=== PATIENT | female | born 1990 | race Caucasian/White ===

== ENCOUNTER 2024-08-08 09:05 | Outpatient (AMB) | payer BC, SELFPAY ==
--- NOTE | 2024-08-08 09:22 | A.OFFPC_ITS ---
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 News Internship Required: No Is last menstrual period known: Yes Last menstrual period: 08/01/24 Post menopausal: No Patient : No Allergies No Known Allergies Allergy (Verified 08/08/24 09:41) Medication List - Last Reconciled 08/08/24 by Gage Nation CNP desog-e.estradiol/e.estradiol 0.15-0.02 mgx21 /0.01 mg x 5 (Cat (28)) 1 tab PO DAILY levothyroxine 75 mcg PO DAILY Tobacco use date assessed: 08/08/24 Dental Screening Dental Screen Date: 08/08/24 Did you have a dental visit in the last 12 months?: Yes Did you have a dental problem in the last 6 months where you did not have access to dental care?: No Was dental information given to patient?: Patient has dentist HPI HPI Comments History of Present Illness Details New patient Prior PCP:?[facility], Dr. Miller Last office visit/CPE: Over 6 months Acute issue(s): Hypothyroidism -She is on levothyroxine 75 mcg daily She is on daily OCP She notes that she generally eats healthy and sleeps well. She exercises rout inely. She is interested in seeing a telehealth coordinator PMHx: Hypothyroidism, microscopic hematuria SurgHx: Ear tubes placement FHx: Mom: HTN, HLD, thyroid disease. Dad: Alcohol abuse, DM SocHx: Nonsmoker. Does not drink alcohol. No recreational drugs She has not had an eye exam in a long time Last tetanus vaccine is unknown Last pap smear test was with [facility]: normal She reports blood in her urine whenever she get urine test at her [employer], ongoing past 5-6 years. No history of burning, pain, discharge with urination, or urinary frequency. 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 Surgical History (Updated 08/08/24 @ 09:38 by Treva Lobato) History of placement of ear tubes Family History (Updated 08/08/24 @ 09:40 by Treva Lobato) Father Alcohol abuse Diabetes Mother High blood pressure High cholesterol Thyroid disorder Social History Housing: [facility] Patient Tobacco Use Status: Never used Tobacco e-Cigarette/Vaping Use: Never Used Second Hand Smoke Exposure: No service: No Current occupational status: employed Current occupation: [employer] Current occupational exposures/hazards: No Cognitive needs: No Hearing needs: No Vision needs: No Female Reproductive History Menstrual Date of last menstrual period: 08/01/24 Questionnaire PHQ-9 Over the last 2 weeks, how often have you been bothered by any of the following problems? 1. Little interest or pleasure in doing things: not at all 2. Feeling down, depressed, or hopeless: not at all 3. Trouble falling or staying asleep, or sleeping too much: not at all 4. Feeling tired or having little energy: not at all 5. Poor appetite or overeating: not at all 6. Feeling bad about yourself - or that you are a failure or have let yourself or your family down: not at all 7. Trouble concentrating on things, such as reading the newspaper or watching television: not at all 8. Moving or speaking so slowly that other people could have noticed. Or the opposite - being so fidgety or restless that you have been moving around a lot more than usual: not at all 9. Thoughts that you would be better off or of hurting yourself in some way: not at all Total score: 0 Depression Screening Interpretation: Negative Depression Screening Done: Yes 78039 - PHQ-9 Billing: Yes Source: Developed by Drs. Jose R Arzate, Tabitha Holder, Bryson Knox and colleagues, with an educational robert from [employer]. Thrive Questionnaire Date Thrive assessed: 08/08/24 I am a: Patient What is your living situation today?: I have a steady place to live Within the past 12 months, did the food you bought not last and you didn't have the money to get more?: Never true Within the past 12 months, did you worry whether your food would run out before you got money to buy more?: Never true Do you have trouble paying for medicines?: No Do you have trouble getting transportation to medical appointments?: No Do you have trouble paying your heating and electricity bill?: No Do you have trouble taking care of your child, family member or friend?: No Do you have trouble with day-to-day activities such as bathing, preparing meals, shopping, managing finances, etc.?: No Are you currently unemployed and looking for a job?: No Are you interested in more education?: No Please select the resources that you would like help with: None Currently or been in a relationship where the following occur: No concerns reported THRIVE Score: 0 AUDIT C Alcohol Use Questionnaire (AUDIT-C) 1. How often do you have a drink containing alcohol?: Never 3. How often do you have six or more drinks on one occasion?: Never Total Score: 0 CAROLYN-7 AMB Questionnaire CAROLYN-7 Date CAROLYN - 7 assessed: 08/08/24 Feeling nervous, anxious, or on edge: 0 = Not at all Not being able to stop or control worryin = Not at all Worrying too much about different things: 0 = Not at all Trouble relaxin = Not at all Being so restless that it is hard to sit still: 0 = Not at all Becoming easily annoyed or irritable: 0 = Not at all Feeling afraid as if something awful might happen: 0 = Not at all Total CAROLYN-7 score (0-4 normal; 5-9 mild; 10-14 moderate; 15-21 severe): 0 Source: Developed by Drs. Jose R Arzate, Tabitha Holder, Bryson Knox and colleagues, with an educational robert from [employer]. CAROLYN-7 Assessment Billing CAROLYN-7 Assessment Tool: CAROLYN-7 Assessment 38844 Review of Systems Const Details: Denies chills, Denies fatigue, Denies fever(s), Denies headache(s) and Denies weakness HEENT Denies change in vision, Denies dizziness, Denies headache(s), Denies hearing loss, Denies nasal congestion, Denies sinus pain, Denies sinus pressure and Denies sore throat Card Denies chest pain, Denies lightheadedness, Denies dyspnea and Denies other (palpitations) Resp Denies cough, Denies dyspnea and Denies wheezing GI Denies abdominal pain, Denies melena, Denies hematochezia, Denies change in bowel habits, Denies dyspepsia and Denies nausea Denies hematuria and Denies dysuria Musc Denies abnormal gait, Denies myalgias, Denies arthralgias, Denies numbness and Denies tingling Skin/Breast Denies rash, Denies unusual bruising and Denies wounds Neuro Denies abnormal gait, Denies dizziness, Denies headache(s), Denies memory loss, Denies numbness, Denies Sensory deficit (Neuro), Denies tingling and Denies weakness Psych Denies anxiety, Denies depression and Denies memory loss Endo Denies cold intolerance, Denies fatigue, Denies heat intolerance, Denies polydipsia and Denies polyuria Walter/Lymph Denies easy bleeding and Denies easy bruising Aller/Immun Denies wheezing Physical exam (Primary Care) Vital Signs: Last Vital Signs Temp 97.6 F 08/08/24 09:31 Pulse 91 08/08/24 09:31 Resp 16 08/08/24 09:31 BP 122/70 08/08/24 09:31 Pulse Ox 96 08/08/24 09:31 Oxygen Delivery Method Room Air 08/08/24 09:31 BMI result Body Mass Index 39.8 Tobacco/Smoking Status: Tobacco use Status Tobacco use date assessed 08/08/24 08/08/24 09:30 Patient Tobacco Use Status Never used Tobacco 08/08/24 09:30 e-Cigarette/Vaping Use Never Used 08/08/24 09:30 PHQ-9: PHQ-9 Score PHQ-9: Total score 0 08/08/24 10:19 Depression Screening Interpretation: Negative Thrive Assessment: Date of Thrive Assessment Date Thrive assessed 08/08/24 08/08/24 09:41 Currently or been in a relationship where the following occur: No concerns reported Const Other: General: no acute distress, well developed, alert and awake Nutritional Appearance: well nourished Orientation/consciousness: patient oriented x3 HENMT Head: Yes normocephalic and Yes atraumatic Ears: hearing grossly normal bilaterally and TM's normal bilaterally General nose exam: Normal external nose present and Normal nares present Mouth: Normal oral and palatal mucosa present and moist mucous membranes Teeth and gingiva: dentition normal Throat: Yes oropharynx normal Eyes Pupils: Equal, round and reactive pupils present and Pupil accommodation reflex normal EOM: EOMs intact bilaterally Neck Neck: Yes normal visual inspection, Yes no lymphadenopathy and Yes trachea midline Thyroid: Thyroid normal Carotids: no bruits Lymphatic: no lymphadenopathy noted Chest Chest palpation & inspection: normal inspection of the chest Resp Effort & Inspection: normal respiratory effort Auscultation: clear to auscultation bilaterally Cardio Rate: regular rate Rhythm: regular rhythm Heart sounds: S1 normal heart sound present, S2 normal heart sound present, no gallops, no murmurs and no rubs Bruits: no abdominal aortic bruits and no carotid bruits GI Palpation (GI): No Abdominal aortic bruit present, Soft to palpation, nontender, No hepatosplenomegaly present and No Rebound tenderness present Auscultation: normal bowel sounds General: Yes no CVA tenderness Back/Spine/Pelvis Back: no CVA tenderness Cervical Spine: cervical ROM normal and No Cervical spine tenderness Thoracic/Lumbar Spine: thoraco-lumbar ROM normal, No pain with thoraco-lumbar ROM, No thoracic spinal tenderness and No lumbar spinal tenderness Skin General: warm and dry. Normal skin color. Normal skin turgor Lesions: no lesions Rashes: no rashes Trauma: no lacerations or abrasions Wounds: no wounds Nails: normal Neuro General: patient oriented x3, gait normal and CN's II-XI intact bilaterally Cranial nerves: Yes Equal, round and reactive pupils present Cognition (Neuro): normal cognition Gait exam (Neuro): Normal gait present Motor exam (neuro): 5/5 motor strength present throughout Sensory Exam: No Sensory deficit (Neuro) Deep tendon reflexes (DTR's): Right patellar reflex intensity grade: 2+ and Left patellar reflex intensity grade: 2+ Extrem General: Yes normal to inspection, No edema and No calf tenderness Psych Appearance: grossly normal Affect: normal affect Attitude: cooperative Thought process: Normal thought process present Immunizations Boostrix Tdap 2.5 Lf unit-8 mcg-5 Lf/0.5 mL intramuscular syringe Performing Provider: Gage Nation CNP [place] [facility] Administered by: Elyse Marcial RN on 08/08/24 10:18 Dose Route Admin Location Dispensed Lot Number Expiration Date [facility] [place]NOTE 2] 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 mL IM Left Deltoid 0.5 mL [id number] 08/08/24 18017-251-42 [employer] VIS Given Date VIS Provided VIS Publication Date 08/08/24 Single Vaccine 21 Eligibility Eligibility Date Funding Source Not [facility] Eligible 08/08/24 Private Assessment and Plan Assessment & Plan (1) Normal physical examination, routine: Code(s): Z00.00 - Encounter for general adult medical examination without abnormal findings Plan: No significant physical restrictions or limitations noted Continue current treatment regimen Healthy diet and routine exercise encouraged Advised to get lab work done and follow-up in 2-3 weeks for labs review Return sooner with symptoms or concerns Verbalized understanding and agreed with the treatment plan (2) Hypothyroidism: Code(s): E03.9 - Hypothyroidism, unspecified Plan: She is on levothyroxine 75 mcg daily. 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 No symptoms. She requests a referral to [facility] Will check urinalysis and make changes as needed Verbalized understanding and agreed with the plan (4) Eye exam, routine: Code(s): Z01.00 - Encounter for examination of eyes and vision without abnormal findings Plan: She has not had an eye exam in a long time Referred to Ophthalmology for routine eye exam (5) Vaccine for tetanus toxoid: Code(s): Z23 - Encounter for immunization Plan: Last tetanus vaccine is unknown Tdap vaccine was administered by our nurse today (6) Obesity (BMI 30-39.9): Code(s): E66.9 - Obesity, unspecified Plan: She currently weighs 197 lb, BMI is 39.8 Healthy diet and routine exercise encouraged [place] [facility] (7) Laboratory tests ordered as part of a complete physical exam (CPE): Code(s): Z00.00 - Encounter for general adult medical examination without abnormal findings Plan: Fasting labs ordered as part of a complete physical exam. Advised to fast for at least 10 hours before getting labs drawn. May drink water Verbalized understanding and agreed with treatment plan. Orders: Orders Complete Blood Count Auto Diff Today Z00.00 - Encounter for general adult medical examination without abnormal findings Comprehensive Sachse. Panel Fast Today Z00.00 - Encounter for general adult medical examination without abnormal findings Lipid Panel Today Z00.00 - Encounter for general adult medical examination without abnormal findings TSH reflex Free T4 Today Z00.00 - Encounter for general adult medical examination without abnormal findings UA CC w/rflx Micro + Cult Today Z00.00 - Encounter for general adult medical examination without abnormal findings TDaP Immunization Today Z23 - Encounter for immunization Referrals Ophthalmology Referral Z01.00 - Encounter for examination of eyes and vision without abnormal findings Nutrition/Dietitian Referral E66.9 - Obesity, unspecified Coding Level of Care Code New Pt Level 3 (01540) New Pt Prev Care 18-39yr([id number] Diagnoses Normal physical examination, routine Z00.00 Hypothyroidism E03.9 Microscopic hematuria R31.29 Eye exam, routine Z01.00 Vaccine for tetanus toxoid Z23 Obesity (BMI 30-39.9) E66.9 Laboratory tests ordered as part of a complete physical exam (CPE) Z00.00 Additional Codes CAROLYN-7 Assessment Billing - CAROLYN-7 Assessment Tool: CAROLYN-7 Assessment 05005 ([id number])
[2024-08-08 09:31] VITALS: BP 122/70; PULSE 91; RESP 16; TEMP 36.4; O2SAT 96; BMI 39.8
== END 2024-08-08 10:08 | disposition home or self-care (01) ==
PROVIDERS: Visit Provider Nurse Practitioner Family
DX: Z00.00 Encounter for general adult medical examination without abnormal findings (principal); Z68.39 Body mass index [BMI] 39.0-39.9, adult; E66.9 Obesity, unspecified; E03.9 Hypothyroidism, unspecified; R31.29 Other microscopic hematuria; Z23 Encounter for immunization

== ENCOUNTER → 2024-08-08 09:05 | Outpatient (BNVA) | payer BC, SELFPAY | PROVIDERS: Visit Provider Nurse Practitioner Family | DX: Z00.00 Encounter for general adult medical examination without abnormal findings (principal); E03.9 Hypothyroidism, unspecified; R31.9 Hematuria, unspecified; E66.9 Obesity, unspecified; Z68.39 Body mass index [BMI] 39.0-39.9, adult; Z79.899 Other long term (current) drug therapy | CPT/HCPCS: 90471; 90715; 96127 ==

== ENCOUNTER 2024-08-09 08:20 | Outpatient (REF) | payer BC, SELFPAY ==
[2024-08-09 10:15] LABS: MANUAL DIFF FLAG NO
[2024-08-09 10:25] LABS: Basophils Percent Auto 0.3 % (0-2); Eosinophils Percent Auto 0.5 % (0-4); Hematocrit 40.7 % (37.0-47.0); Hemoglobin 13.6 g/dl (12.0-16.0); Imm Gran Abs Auto 0.03 X10*3/uL (0.00-0.03); Imm Gran Pct Auto 0.3 % (0.0-0.4); Lymphocytes Absolute Auto 1.8 X10*3/uL (1.2-4.9); Lymphocytes Percent Auto 20.1 % (20-40); Mean Corpuscular HGB Conc 33.4 g/dl (31.0-35.0); Mean Corpuscular Hemoglobin 29.2 pg (27.0-33.0); Mean Corpuscular Volume 87.3 fL (80.0-98.0); Mean Platelet Volume 10.3 fL (9.4-12.3); Monocytes Absolute Auto 0.5 X10*3/uL (0.1-1.2); Monocytes Percent Auto 5.7 % (2-11); Neutrophils Absolute Auto 6.4 x10*3/uL (2.0-8.3); Neutrophils Percent Auto 73.1 % (45-73); Platelet Count 388 X10*3/uL (160-400); Red Blood Count 4.66 X10*6/uL (4.20-5.50); Red Cell Distribution Width 13.4 % (11.0-16.0); White Blood Count 8.8 X10*3/uL (4.8-10.8)
[2024-08-09 10:27] LABS: Appearance Urine Cloudy; Color Urine Yellow; Glucose Urine UA Negative (Negative); Leukocyte Esterase Urine Moderate (2+) (Negative); Nitrite Urine Negative (Negative); UMIC TRIGGER UACC YES; Urine Blood Moderate (2+) (Negative); Urine Ketones Negative (Negative); Urine Protein Negative (Neg-Trace)
[2024-08-09 10:33] LABS: Bacteria Urine 2+ (None Seen); Hyaline Casts Urine 0-2 /LPF (0-2); RBC Urine >20 /HPF (0-2); UACC Culture Trigger YES; WBC Urine 21-50 /HPF (0-5)
[2024-08-09 11:08] LABS: Alanine Aminotransferase 35 U/L (0-31); Alkaline Phosphatase 64 U/L (39-117); Anion Gap 13 (12-20); Aspartate Amino Transferase 30 U/L (5-31); Bilirubin Total 0.4 mg/dL (0.0-1.0); Blood Urea Nitrogen 12 mg/dL (9-16); Calcium 9.4 mg/dL (8.4-10.2); Carbon Dioxide 21 mmol/L (22-29); Chloride 108 mmol/L (96-108); Cholesterol 240 mg/dL (<200); Estimated Glomerular Filt Rate > 60; Glucose Fasting 82 mg/dL (60-99); HDL Cholesterol 59 mg/dL (>40); LDL Cholesterol Calculated 128 mg/dL (<100); Potassium 3.8 mmol/L (3.3-5.1); Sodium 138 mmol/L (135-145); TSH reflex Free T4 2.25 uIU/mL (0.32-4.0); Total Protein 7.9 g/dL (6.5-8.0); Triglycerides 265 mg/dL (<150)
== END 2024-08-09 08:21 | disposition home or self-care (01) ==
LOC: HO.WFDLDS 08:20
PROVIDERS: Visit Provider Nurse Practitioner Family
DX: Z00.00 Encounter for general adult medical examination without abnormal findings (principal)
CPT/HCPCS: 36415; 80053; 80061; 81001; 84443; 85025; 87086

== ENCOUNTER 2024-08-23 13:34 | Outpatient (AMB) | payer BC, SELFPAY ==
[2024-08-23 14:12] VITALS: BMI 39.4
--- NOTE | 2024-08-23 14:12 | MHC.AMNUTRGE ---
VS Expanded 08/23/24 14:12 08/30/24 11:07 Height 4 ft 11 in 4 ft 11 in Weight 194 lb 14.218 oz 195 lb BMI 39.4 39.4 Intake Visit Reasons: Obesity/CONFIRMED Allergies No Known Allergies Allergy (Verified 08/28/24 14:45) Nutrition Presentation Details: Pt presents for MNT for obesity. Pt was referred by PCP Food frequency fruits: 2-4 twice/day dairy: 2 + cheese mostly fish: 0-3 week vegetables: every meal water : 24 oz/d fried foods 3 x/wk Working on intermittent fasting on and off physical activity : daily life activities etoh/smoking: --- BS Monitoring Most Recent Diabetes Results: Cholesterol 240 mg/dL (<200) H 08/09/24 HDL Cholesterol 59 mg/dL (>40) 08/09/24 Triglycerides 265 mg/dL (<150) H 08/09/24 Creatinine 0.72 mg/dL (0.5-1.4) 08/09/24 Blood Urea Nitrogen 12 mg/dL (9-16) 08/09/24 Sodium 138 mmol/L (135-145) 08/09/24 Potassium 3.8 mmol/L (3.3-5.1) 08/09/24 Chloride 108 mmol/L (96-108) 08/09/24 Carbon Dioxide 21 mmol/L (22-29) L 08/09/24 Calcium 9.4 mg/dL (8.4-10.2) 08/09/24 AST 30 U/L (5-31) 08/09/24 ALT 35 U/L (0-31) H 08/09/24 Total Protein 7.9 g/dL (6.5-8.0) 08/09/24 Albumin 4.0 g/dL (3.5-5.0) 08/09/24 WYP-Twgtqpp-Rr.Jeor Equation Height: 4 ft 11 in Weight: 195 lb Resting Metabolic Rate: 1496.89 Calculated Activity Level: Sedentary Calories Needed to Maintain Weight: 1796.27 Diagnosis Nutrition problem #1: food nutri know defi As related to (etiology) #1: diagnosis As evidenced by (sign/symptom) #1: knowledge deficit of diet [facility] Medical History (Updated 08/30/24 @ 11:[address], LDN) Frankie's disease Surgical History (Updated 08/08/24 @ 09:38 by Treva Lobato MA) History of placement of ear tubes Family History (Updated 08/08/24 @ 09:40 by Treva Lobato MA) Father Alcohol abuse Diabetes Mother High blood pressure High cholesterol Thyroid disorder [facility] History [facility] Patient Tobacco Use Status: Never used Tobacco e-Cigarette/Vaping Use: Never Used Second Hand Smoke Exposure: No service: No Current occupational status: employed Current occupation: [employer] Current occupational exposures/hazards: No Cognitive needs: No Hearing needs: No Vision needs: No Assessment & Plan Assessment & Plan (1) Obesity (BMI 30-39.9): Comment: with dyslipidemia, Code(s): E66.9 - Obesity, unspecified Category: Medical Plan: Wt: 88 Kg ( 09/14 ) Est kcal needs as per MSJ: 1800 (40% carb, 30% protein/fat) Est fluid needs as per 25-30 ml/d: 2600 Est prot per day as per 1 g/kg bw: 88 Recommend fiber intake : 8-10 g per day and gradually increase to 25-28 g per day for women and 35-38 g for men or as tolerated Recommend sodium intake per day : less than 2300 mg Educated patient on: ( R = reviewed V = verbalizes understanding N/R = needs review N/A = not applicable Food sources of carbohydrate, adequate serving sizes and its role in various health conditions: R Differences between complex carbohydrates a simple carbohydrates, role of fiber in diet: R V N/R Lean protein sources of foods: R V NR Differences between types of fats and role in diet (mono on saturated fat fatty acids, saturated fatty acids, trans fats): R V N/R Food sources of sodium in salt and healthy modifications for heart health in kidney health: R V R/V Vitamins and minerals: R V N/R Healthy plate method concept: R V N/R Physical activity: Benefits a precaution: R Patient Instructions: Practice mindful eating have 3 balanced meals per day working on following healthy plate method see meal ideas consisting of lean protein foods and less than 60 g carb per meals /complex carbs Keep hydrated by having no sugar beverages (water, infused water) 8-10 c/d Coding Level of Care Code Nutr Indiv Intake (65664) Diagnoses Obesity (BMI 30-39.9) E66.9 Time Spent (min) 30
[2024-08-30 11:07] VITALS: BMI 39.4
== END 2024-08-23 14:45 | disposition home or self-care (01) ==
PROVIDERS: Visit Provider Dietitian, Registered
DX: E66.9 Obesity, unspecified (principal)

== ENCOUNTER → 2024-08-23 13:34 | Outpatient (BNVA) | payer BC, SELFPAY | PROVIDERS: Visit Provider Dietitian, Registered | DX: E66.9 Obesity, unspecified (principal); Z68.39 Body mass index [BMI] 39.0-39.9, adult; E78.5 Hyperlipidemia, unspecified; Z71.3 Dietary counseling and surveillance | CPT/HCPCS: 97802 ==

== ENCOUNTER 2024-08-28 14:48 | Outpatient (AMB) | payer BC, SELFPAY ==
--- NOTE | 2024-08-28 14:45 | A.OFFPC_ITS ---
Intake Visit Reasons: Lab review Intake Note: patient here for follow up on labs Pre Sales Technical Consultant Required: No Allergies No Known Allergies Allergy (Verified 08/28/24 14:45) Tobacco use date assessed: 08/08/24 Dental Screening Dental Screen Date: 08/08/24 HPI HPI Comments History of Present Illness Details 33-year-old female presents for review o f recent lab results She admits to taking her medications as prescribed without adverse reactions She offers no complaints and denies acute symptoms at this time [facility] Medical History (Updated 08/28/24 @ 15:12 by Gage Nation CNP) Frankie's disease Surgical History (Updated 08/08/24 @ 09:38 by Treva Lobato MA) History of placement of ear tubes Family History (Updated 08/08/24 @ 09:40 by Treva Lobato MA) Father Alcohol abuse Diabetes Mother High blood pressure High cholesterol Thyroid disorder Social History [facility]: [facility] Patient Tobacco Use Status: Never used Tobacco e-Cigarette/Vaping Use: Never Used Second Hand Smoke Exposure: No service: No Current occupational status: employed Current occupation: [employer] Current occupational exposures/hazards: No Cognitive needs: No Hearing needs: No Vision needs: No Questionnaire Thrive Questionnaire Date Thrive assessed: 08/08/24 CAROLYN-7 AMB Questionnaire CAROLYN-7 Date CAROLYN - 7 assessed: 08/08/24 Source: Developed by Drs. Jose R Arzate, Tabitha Holder, Byrson Knox and colleagues, with an educational robert from [employer] Review of Systems Const Details: Const Denies chills, Denies fatigue, Denies fever(s), Denies headache(s) and Denies weakness ENT Denies dizziness and Denies headache(s) Card Denies chest pain, Denies lightheadedness, Denies dyspnea and Denies other (Palpitations) Resp Denies cough, Denies dyspnea, Denies wheezing and Denies other ( shortness of breath) GI Denies abdominal pain, Denies melena, Denies hematochezia, Denies change in bowel habits, Denies dyspepsia and Denies nausea Denies hematuria and Denies dysuria Musc Denies abnormal gait, Denies myalgias, Denies arthralgias, Denies numbness and Denies tingling Skin/Breast Denies rash, Denies unusual bruising and Denies wounds Neuro Denies abnormal gait, Denies dizziness, Denies headache(s), Denies memory loss, Denies numbness, Denies Sensory deficit (Neuro), Denies tingling and Denies weakness Psych Denies anxiety, Denies depression, Denies memory loss Endo Denies cold intolerance, Denies fatigue, Denies heat intolerance, Denies polydipsia and Denies polyuria Aller/Immun Denies wheezing Physical exam (Primary Care) Tobacco/Smoking Status: Tobacco use Status Tobacco use date assessed 08/08/24 08/28/24 14:46 Patient Tobacco Use Status Never used Tobacco 08/28/24 14:46 e-Cigarette/Vaping Use Never Used 08/28/24 14:46 Thrive Assessment: Date of Thrive Assessment Date Thrive assessed 08/08/24 08/28/24 14:46 Const Other: Telehealth visit no physical exam Telehealth Telehealth Telehealth Platform: Telephone Location of provider rendering services: practice address Location of patient: address on file Patient Identification confirmed using: Name, : Yes Telehealth method: voice only Patient verbally consented to treatment: Yes Patient verbally consented to billing insurance company: Yes Patient informed of any privacy concerns related to visit: Yes Coding Level of Care Code Tele Est Pt Level 3 (95197) Diagnoses Dyslipidemia E78.5 Elevated ALT measurement R74.01 Hypothyroidism E03.9 Time Spent (min) 10 Assessment & Plan Assessment & Plan (1) Dyslipidemia: Code(s): E78.5 - Hyperlipidemia, unspecified Category: Medical Plan: Recent triglycerides and total cholesterol levels elevated, 265 and 240 respectively She notes that her mother has history hyperlipidemia She will like to try lifestyle changes before medication management Advised to limit foods high in saturated fat and avoid foods high in trans fat Routine exercise encouraged Advised to fast for 10-12 hours, may drink water only, and get blood work done before her next visit Follow-up in 2 months or sooner with symptoms or concerns Verbalized understanding and agreed with the plan (2) Elevated ALT measurement: Code(s): R74.01 - Elevation of levels of liver transaminase levels Category: Medical Plan: Recent ALT level is slightly elevated, 35 Likely due to hepatic steatosis Healthy diet and routine exercise encouraged Will recheck lipid panel levels in 2 months Verbalized understanding and agreed with the plan (3) Hypothyroidism: Code(s): E03.9 - Hypothyroidism, unspecified Category: Medical Plan: Recent TSH level was normal Continue current treatment regimen Will continue to monitor Verbalized understanding and agreed with the plan Orders: Orders Liver Panel 2 Months R74.01 - Elevation of levels of liver transaminase levels Lipid Panel 2 Months E78.5 - Hyperlipidemia, unspecified
== END 2024-08-28 16:15 | disposition home or self-care (01) ==
LOC: HO.HMCFM 14:48
PROVIDERS: PCP Nurse Practitioner Family; Visit Provider Nurse Practitioner Family
DX: E78.5 Hyperlipidemia, unspecified (principal); R74.01 Elevation of levels of liver transaminase levels; E03.9 Hypothyroidism, unspecified

== ENCOUNTER → 2024-08-28 14:48 | Outpatient (BNVA) | payer BC, SELFPAY | PROVIDERS: PCP Nurse Practitioner Family; Visit Provider Nurse Practitioner Family ==